=== PATIENT | female | born 1965 | race Caucasian/White ===

== ENCOUNTER 2023-10-02 06:48 | Day surgery (SDC) | payer OTHER ==
[~2023-10-02] VITALS: Ht 182.9 cm; Wt 117.9 kg
[2023-10-02] MEDS ORDERED: METFORMIN HCL1000 MG PO (07:06)
[2023-10-02] MEDS ORDERED: METOPROL TAR25 M1 PO (07:08)
[2023-10-02] MEDS ORDERED: NEURONTIN800 MG PO (07:08)
[2023-10-02] MEDS ORDERED: VENLAFAXINE HC150 M1 PO (07:09)
[2023-10-02] MEDS ORDERED: ALDACTONE50 MG PO (07:10)
[2023-10-02] MEDS ORDERED: HYDROXYZINE HYD25 MG (07:10)
[2023-10-02] MEDS ORDERED: MELOXICAM15 MG PO (07:11)
[2023-10-02] MEDS ORDERED: PEPCID20 MG PO (07:12)
[2023-10-02] MEDS ORDERED: ANASTROZOLE1 MG PO (07:13)
[2023-10-02] MEDS ORDERED: ATORVASTATIN CA20 MG PO (07:13)
[2023-10-02] MEDS ORDERED: OMEGA-3 FISH1000 MG PO (07:14)
[2023-10-02] MEDS ORDERED: REMERON30 MG PO (07:15)
[2023-10-02] MEDS ORDERED: SEROQUEL25 MG PO (07:16)
[2023-10-02] MEDS ORDERED: BIOTIN5000 MC2 (07:17)
[2023-10-02] MEDS ORDERED: VITAMIN E400 UNIT PO (07:17)
[2023-10-02] MEDS ORDERED: KRISTALOSE10 GM PO (07:19)
[2023-10-02] MEDS ORDERED: MIRALAX17 GM (07:20)
[2023-10-02] MEDS ORDERED: PERCOCET 5/321 COMBO PO (07:22)
[2023-10-02 09:43] VITALS: BP 130/80
== END 2023-10-02 08:44 | disposition home or self-care (01) ==
LOC: ORM 06:48
PROVIDERS: ATTEND Student in an Organized Health Care Education/Training Program
DX: G89.4 Chronic pain syndrome (principal); M54.89 Other dorsalgia; M54.2 Cervicalgia

== ENCOUNTER 2023-11-06 06:42 | Day surgery (SDC) | payer OTHER ==
[~2023-11-06] VITALS: Ht 182.9 cm; Wt 117.9 kg
[~2023-11-06 06:42] MED LIST: ALDACTONE50 MG PO; ANASTROZOLE1 MG PO; ATORVASTATIN CA20 MG PO; BIOTIN5000 MC2; HYDROXYZINE HYD25 MG; KRISTALOSE10 GM PO; MELOXICAM15 MG PO; METFORMIN HCL1000 MG PO; METOPROL TAR25 M1 PO; MIRALAX17 GM; NEURONTIN800 MG PO; OMEGA-3 FISH1000 MG PO; PEPCID20 MG PO; PERCOCET 5/321 COMBO PO; REMERON30 MG PO; SEROQUEL25 MG PO; VENLAFAXINE HC150 M1 PO; VITAMIN E400 UNIT PO
[2023-11-06] MEDS ORDERED: SODIUM CHLORIDE 0.9% 10 ML SYR ONE (07:01)
[2023-11-06] MEDS ORDERED: MIDAZOLAM HCL 2 MG/2 ML VIAL ONE (07:53)
[2023-11-06] MEDS ORDERED: LIDOCAINE MPF 1% (10 MG/ML) 5 ML VIAL ONE (10:22)
[2023-11-06] MEDS ORDERED: BUPIVACAINE HCL PF 0.5 % 50 MG/10 ML SDV ONE (10:22)
[2023-11-06 11:21] VITALS: BP 144/85
== END 2023-11-06 08:45 | disposition home or self-care (01) ==
LOC: ORM 06:42
PROVIDERS: ATTEND Student in an Organized Health Care Education/Training Program
DX: G89.4 Chronic pain syndrome (principal); M50.30 Other cervical disc degeneration, unspecified cervical region; M51.36 Other intervertebral disc degeneration, lumbar region; M47.812 Spondylosis without myelopathy or radiculopathy, cervical region; M47.816 Spondylosis without myelopathy or radiculopathy, lumbar region; M62.830 Muscle spasm of back

== ENCOUNTER 2024-04-01 09:33 | Day surgery (SDC) | payer OTHER ==
[~2024-04-01] VITALS: Ht 182.9 cm; Wt 117.9 kg
[2024-04-01] MEDS ORDERED: SODIUM CHLORIDE 0.9% 10 ML SYR ONE ×2 (09:43→11:07)
[2024-04-01] MEDS ORDERED: BUPIVACAINE HCL PF 0.5 % 50 MG/10 ML SDV ONE (11:08)
[2024-04-01] MEDS ORDERED: LIDOCAINE HCL 1% (10MG/ML) 100 MG/10 ML MDV ONE (11:08)
[2024-04-01 12:57] VITALS: BP 157/96
== END 2024-04-01 11:55 | disposition home or self-care (01) ==
LOC: ORM 09:33
PROVIDERS: ATTEND Student in an Organized Health Care Education/Training Program
DX: M47.812 Spondylosis without myelopathy or radiculopathy, cervical region (principal); G89.4 Chronic pain syndrome; M50.30 Other cervical disc degeneration, unspecified cervical region; M51.36 Other intervertebral disc degeneration, lumbar region; Z79.899 Other long term (current) drug therapy; M47.816 Spondylosis without myelopathy or radiculopathy, lumbar region; M62.830 Muscle spasm of back